=== PATIENT | male | born 1990 | race Caucasian/White ===

== ENCOUNTER 2023-07-05 22:16 | Inpatient (IN) | payer MEDICAID ==
[~2023-07-05] VITALS: Ht 167.6 cm; Wt 60.4 kg
[2023-07-05 22:17] VITALS: BP_SYST 130; PULSE 93; RESP 17; TEMP 101; O2SAT 99
[2023-07-05] MEDS ORDERED: VANCOMYCIN HCL 1,000 MG in NS 250 ML IV ONE (22:30)
[2023-07-05] MEDS ORDERED: VANCOMYCIN HCL 1000 MG/VIAL IV ONE (22:57)
[2023-07-05 23:21] LABS: BASOPHILS % (AUTO) 0.3 % (0.0-2.0); EOSINOPHILS # (AUTO) 0.1 K/uL (0.0-0.4); EOSINOPHILS % (AUTO) 1.1 % (0.0-4.0); HEMATOCRIT 39.5 % (36-54); HEMOGLOBIN 13.1 g/dL (14.0-18.0); LYMPHOCYTES # (AUTO) 1.9 K/uL (1.0-5.5); MEAN CORPUSCULAR HEMOGLOBIN 28 pg (27-31); MEAN CORPUSCULAR HGB CONC 33 % (32-36); MEAN CORPUSCULAR VOLUME 85 fL (79.0-98.0); MONOCYTES # (AUTO) 0.7 K/uL (0.0-1.0); MONOCYTES % (AUTO) 6.2 % (1.7-9.3); NEUTROPHILS # (AUTO) 8.3 K/uL (1.8-7.7); NEUTROPHILS % (AUTO) 75.4 % (40.0-70.0); PLATELET COUNT (AUTO) 248 K/uL (130-430); RED BLOOD CELL COUNT(AUTO) 4.67 MIL/uL (4.2-6.2); RED CELL DISTRIBUTION WIDTH 14.4 % (9.0-15.0)
[2023-07-05 23:46] LABS: CALCIUM 9.5 mg/dL (8.4-11.0); CREATININE 0.95 mg/dL (0.55-1.30); POTASSIUM 3.3 mmol/L (3.5-5.1); TOTAL BILIRUBIN 0.7 mg/dL (0.0-1.0); TOTAL PROTEIN, SERUM 8.8 g/dL (6.4-8.3)
[2023-07-06] MEDS ORDERED: ACETAMINOPHEN 325 MG TABLET PO PRN ×2 (00:45→11:45)
[2023-07-06 05:12] VITALS: BP_SYST 102; PULSE 61; RESP 18; TEMP 98.6; O2SAT 100
[2023-07-06] MEDS ORDERED: LR 1,000 ML IV SCH (08:00)
[2023-07-06 08:15] VITALS: BP_SYST 106; PULSE 63; RESP 16; TEMP 98.2; O2SAT 99
[2023-07-06] MEDS ORDERED: POTASSIUM CHLORIDE 40 MEQ in NS 250 ML IV ONE (09:00)
[2023-07-06 09:55] LABS: ABG O2 SAT% ESTIMATE 95.7 % (94.0-100.0); BLOOD GAS BASE EXCESS 2.7 mmol/L (-3.0-3.0); BLOOD GAS HCO3 26.4 mmol/L (21.0-27.0); BLOOD GAS PCO2 37.5 mmHg (32.0-45.0); BLOOD GAS PH 7.465 (7.350-7.450); BLOOD GAS PO2 74.2 mmHg (75.0-100.0)
[2023-07-06 09:57] LABS: ALLEN'S TEST POSITIVE (P)
[2023-07-06 09:59] LABS: BARBITURATE, URINE NEGATIVE (NEG <=200)
[2023-07-06 10:00] LABS: BENZODIAZEPINE, URINE NEGATIVE (NEG <=150); CANNABINOID, URINE POSITIVE (NEG <=50); COCAINE, URINE NEGATIVE (NEG <=150); METHAMPHETAMINES SCREEN,URINE POSITIVE (NEG <=500); OPIATE, URINE NEGATIVE (NEG <=100); PHENCYCLIDINE SCREEN,URINE NEGATIVE (NEG <=25); UR TRICYCLIC ANTIDEPRESSANTS NEGATIVE (NEG <=300); URINE AMPHETAMINE POSITIVE (NEG <=500); URINE METHADONE NEGATIVE (NEG <=200); URINE OXYCODONE SCREEN NEGATIVE (NEG <=100)
[2023-07-06 10:11] VITALS: O2SAT 98
[2023-07-06] MEDS: LR 1,000 ML IV SCH (11:30)
[2023-07-06] MEDS ORDERED: LORazepam 2 MG/ML VIAL IVP PRN ×2 (11:45)
[2023-07-06] MEDS ORDERED: cloNIDine HCL 0.1 MG TABLET PO PRN (11:45)
[2023-07-06 12:00] VITALS: BP_SYST 111; PULSE 68; RESP 16; TEMP 99; O2SAT 98
[2023-07-06] MEDS: VANCOMYCIN HCL 1,000 MG in NS 250 ML IV SCH (13:04)
[2023-07-06 16:00] VITALS: BP_SYST 111; PULSE 78; RESP 18; TEMP 99.5; O2SAT 100
[2023-07-06 19:55] VITALS: BP_SYST 115; PULSE 86; RESP 18; TEMP 99; O2SAT 99
[2023-07-07] MEDS: VANCOMYCIN HCL 1,000 MG in NS 250 ML IV SCH ×2 (00:29→12:00)
[2023-07-07] MEDS: LR 1,000 ML IV SCH ×2 (00:30→06:34)
[2023-07-07 00:35] VITALS: BP_SYST 107; PULSE 74; RESP 18; TEMP 99.1; O2SAT 93
[2023-07-07 04:58] LABS: BASOPHILS % (AUTO) 0.2 % (0.0-2.0); EOSINOPHILS # (AUTO) 0.2 K/uL (0.0-0.4); EOSINOPHILS % (AUTO) 1.8 % (0.0-4.0); HEMATOCRIT 41.6 % (36-54); HEMOGLOBIN 13.7 g/dL (14.0-18.0); LYMPHOCYTES # (AUTO) 2.2 K/uL (1.0-5.5); LYMPHOCYTES % (AUTO) 23.9 % (20.5-51.5); MEAN CORPUSCULAR HEMOGLOBIN 28 pg (27-31); MEAN CORPUSCULAR HGB CONC 33 % (32-36); MEAN CORPUSCULAR VOLUME 84 fL (79.0-98.0); MONOCYTES # (AUTO) 0.9 K/uL (0.0-1.0); MONOCYTES % (AUTO) 9.5 % (1.7-9.3); NEUTROPHILS % (AUTO) 64.6 % (40.0-70.0); PLATELET COUNT (AUTO) 235 K/uL (130-430); RED BLOOD CELL COUNT(AUTO) 4.95 MIL/uL (4.2-6.2); RED CELL DISTRIBUTION WIDTH 14.3 % (9.0-15.0); WHITE BLOOD COUNT (AUTO) 9.3 K/uL (4.8-10.8)
[2023-07-07 05:22] LABS: ALBUMIN 3.3 g/dL (3.4-4.8); CALCIUM 9.4 mg/dL (8.4-11.0); CREATININE 0.8 mg/dL (0.55-1.30); POTASSIUM 3.5 mmol/L (3.5-5.1); TOTAL BILIRUBIN 0.5 mg/dL (0.0-1.0); TOTAL PROTEIN, SERUM 7.9 g/dL (6.4-8.3)
[2023-07-07 11:36] VITALS: BP_SYST 127; PULSE 61; RESP 16; TEMP 98.4; O2SAT 98
== END 2023-07-07 15:25 | disposition left against medical advice (07) | DRG 720 ==
LOC: SED 22:16 → SMU 07-06 00:37
PROVIDERS: ADMIT Internal Medicine; ATTEND Internal Medicine
DX: A41.9 Sepsis, unspecified organism (principal); E44.1 Mild protein-calorie malnutrition; B19.20 Unspecified viral hepatitis C without hepatic coma; R00.1 Bradycardia, unspecified; F12.10 Cannabis abuse, uncomplicated; F15.10 Other stimulant abuse, uncomplicated; Z53.29 Procedure and treatment not carried out because of patient's decision for other reasons; L03.114 Cellulitis of left upper limb; Z88.0 Allergy status to penicillin; Z79.899 Other long term (current) drug therapy; Z68.21 Body mass index [BMI] 21.0-21.9, adult
CPT/HCPCS: 36415; 36600; 71045; 80053; 80307; 82803; 83605; 85025; 87040; 93005; 93306; 96365; 99285; J1956; J2060; J3370; J3480; J7050